=== PATIENT | male | born 1970 | race Caucasian/White ===

== ENCOUNTER 2016-11-24 06:21 | Emergency (ER) | payer BC ==
[2016-11-24] MEDS ORDERED: Meclizine 25 MG Tab PO ONE (06:34)
[2016-11-24] MEDS ORDERED: Sodium Chloride 0.9% 1,000 ML IV ONE (06:38)
--- NOTE | 2016-11-24 06:47 | EDM.PDOC ---
<Maldonado Zapata - Last Filed: 11/24/16 17:25> ED HPI GENERAL MEDICAL PROBLEM - General Chief Complaint: General Stated Complaint: DIZZINESS Time Seen by Provider: 11/24/16 06:30 - Related Data Allergies Allergy/AdvReac Type Severity Reaction Status Date / Time Penicillins Allergy Cannot Verified 11/24/16 06:27 Remember Sulfa (Sulfonamide Allergy Itching Verified 11/24/16 06:27 Antibiotics) Home Meds: Home Meds Fluticasone Propionate [Flonase] 1 puff NASRT DAILY 11/24/16 [History] Course - Vital Signs Text/Narrative:: ASA 324 mg po MRI as ordered by Dr. Bhatt was interpreted by radiology as showing no significant abnormalities. carotid US scheduled. Last Recorded V/S: Last Vital Signs Temp 36.8 C 11/24/16 06:30 Pulse 84 11/24/16 06:30 Resp 16 11/24/16 06:30 BP 134/92 H 11/24/16 06:59 Pulse Ox 100 11/24/16 06:30 - Orders/Labs/Meds Labs: Laboratory Tests 11/24/16 11/24/16 11/24/16 Range/Units 06:45 06:45 06:45 WBC 7.3 (4.5-12.0) X10-3/uL RBC 5.23 (4.30-5.75) x10(6)uL Hgb 14.8 (11.5-15.5) g/dL Hct 44.4 (30.0-51.3) % MCV 84.9 (80-96) fL MCH 28.3 (27.7-33.6) pg MCHC 33.3 (32.2-35.4) g/dL RDW 12.8 (11.5-15.5) % Plt Count 182 (125-369) X10(3)uL MPV 9.3 (7.4-10.4) fL Neut % (Auto) 54.2 (46-82) % Lymph % (Auto) 35.2 (13-37) % [place] % (Auto) 6.6 (4-12) % Eos % (Auto) 3 (1.0-5.0) % Baso % (Auto) 1 (0-2) % Neut # (Auto) 3.9 (1.6-8.3) # Lymph # (Auto) 2.6 (0.6-5.0) # [place] # (Auto) 0.5 (0.0-1.3) # Eos # (Auto) 0.2 (0.0-0.8) # Baso # (Auto) 0.1 (0.0-0.2) # PT 9.9 (8.7-11.1) INR 0.98 (0.89-1.13) Sodium 137 (135-145) mmol/L Potassium 3.9 (3.5-5.3) mmol/L Chloride 103 (100-110) mmol/L Carbon Dioxide 24 (23-29) mmol/L BUN 13 (5-20) mg/dL Creatinine 0.9 (0.6-1.3) mg/dL Est Cr Clr Drug Dosing 111.56 mL/min Estimated GFR (MDRD) > 60 (>60) BUN/Creatinine Ratio 14.4 (9-20) Glucose 173 H (80-116) mg/dL Calcium 9.1 (8.6-10.2) mg/dL Creatine Kinase 60 (60-160) IU/L Troponin I (0.02-0.06) NG/ML B-Natriuretic Peptide (0-100) pg/mL Triglycerides (10-150) mg/dL Cholesterol (5-200) mg/dL LDL Cholesterol Direct (66-130) mg/dL HDL Cholesterol (40-70) mg/dL Cholesterol/HDL Ratio (0-5) Urine Color (YELLOW) Urine Appearance (CLEAR) Urine pH (5.0-6.5) Ur Specific [place] (1.010-1.025) Urine Protein (NEGATIVE) mg/dL Urine Glucose (UA) (NEGATIVE) mg/dL Urine Ketones (NEGATIVE) mg/dL Urine Occult Blood (NEGATIVE) Urine Nitrite (NEGATIVE) Urine Bilirubin (NEGATIVE) Urine Urobilinogen (NEGATIVE) mg/dL Ur Leukocyte Esterase (NEGATIVE) Urine WBC (0) Ur Squamous Epith Cells (NS,R,O) Urine Bacteria (NS) 11/24/16 11/24/16 11/24/16 Range/Units 06:45 06:45 06:45 WBC (4.5-12.0) X10-3/uL RBC (4.30-5.75) x10(6)uL Hgb (11.5-15.5) g/dL Hct (30.0-51.3) % MCV (80-96) fL MCH (27.7-33.6) pg MCHC (32.2-35.4) g/dL RDW (11.5-15.5) % Plt Count (125-369) X10(3)uL MPV (7.4-10.4) fL Neut % (Auto) (46-82) % Lymph % (Auto) (13-37) % [place] % (Auto) (4-12) % Eos % (Auto) (1.0-5.0) % Baso % (Auto) (0-2) % Neut # (Auto) (1.6-8.3) # Lymph # (Auto) (0.6-5.0) # [place] # (Auto) (0.0-1.3) # Eos # (Auto) (0.0-0.8) # Baso # (Auto) (0.0-0.2) # PT (8.7-11.1) INR (0.89-1.13) Sodium (135-145) mmol/L Potassium (3.5-5.3) mmol/L Chloride (100-110) mmol/L Carbon Dioxide (23-29) mmol/L BUN (5-20) mg/dL Creatinine (0.6-1.3) mg/dL Est Cr Clr Drug Dosing mL/min Estimated GFR (MDRD) (>60) BUN/Creatinine Ratio (9-20) Glucose (80-116) mg/dL Calcium (8.6-10.2) mg/dL Creatine Kinase (60-160) IU/L Troponin I < 0.01 L (0.02-0.06) NG/ML B-Natriuretic Peptide < 5 (0-100) pg/mL Triglycerides 603 H (10-150) mg/dL Cholesterol 232 H (5-200) mg/dL LDL Cholesterol Direct 66 (66-130) mg/dL HDL Cholesterol 28 L (40-70) mg/dL Cholesterol/HDL Ratio 8.3 H (0-5) Urine Color (YELLOW) Urine Appearance (CLEAR) Urine pH (5.0-6.5) Ur Specific [place] (1.010-1.025) Urine Protein (NEGATIVE) mg/dL Urine Glucose (UA) (NEGATIVE) mg/dL Urine Ketones (NEGATIVE) mg/dL Urine Occult Blood (NEGATIVE) Urine Nitrite (NEGATIVE) Urine Bilirubin (NEGATIVE) Urine Urobilinogen (NEGATIVE) mg/dL Ur Leukocyte Esterase (NEGATIVE) Urine WBC (0) Ur Squamous Epith Cells (NS,R,O) Urine Bacteria (NS) 11/24/16 Range/Units 09:38 WBC (4.5-12.0) X10-3/uL RBC (4.30-5.75) x10(6)uL Hgb (11.5-15.5) g/dL Hct (30.0-51.3) % MCV (80-96) fL MCH (27.7-33.6) pg MCHC (32.2-35.4) g/dL RDW (11.5-15.5) % Plt Count (125-369) X10(3)uL MPV (7.4-10.4) fL Neut % (Auto) (46-82) % Lymph % (Auto) (13-37) % [place] % (Auto) (4-12) % Eos % (Auto) (1.0-5.0) % Baso % (Auto) (0-2) % Neut # (Auto) (1.6-8.3) # Lymph # (Auto) (0.6-5.0) # [place] # (Auto) (0.0-1.3) # Eos # (Auto) (0.0-0.8) # Baso # (Auto) (0.0-0.2) # PT (8.7-11.1) INR (0.89-1.13) Sodium (135-145) mmol/L Potassium (3.5-5.3) mmol/L Chloride (100-110) mmol/L Carbon Dioxide (23-29) mmol/L BUN (5-20) mg/dL Creatinine (0.6-1.3) mg/dL Est Cr Clr Drug Dosing mL/min Estimated GFR (MDRD) (>60) BUN/Creatinine Ratio (9-20) Glucose (80-116) mg/dL Calcium (8.6-10.2) mg/dL Creatine Kinase (60-160) IU/L Troponin I (0.02-0.06) NG/ML B-Natriuretic Peptide (0-100) pg/mL Triglycerides (10-150) mg/dL Cholesterol (5-200) mg/dL LDL Cholesterol Direct (66-130) mg/dL HDL Cholesterol (40-70) mg/dL Cholesterol/HDL Ratio (0-5) Urine Color Yellow (YELLOW) Urine Appearance Clear (CLEAR) Urine pH 7.0 H (5.0-6.5) Ur Specific [place] 1.015 (1.010-1.025) Urine Protein Negative (NEGATIVE) mg/dL Urine Glucose (UA) Normal (NEGATIVE) mg/dL Urine Ketones Negative (NEGATIVE) mg/dL Urine Occult Blood Negative (NEGATIVE) Urine Nitrite Negative (NEGATIVE) Urine Bilirubin Negative (NEGATIVE) Urine Urobilinogen Normal (NEGATIVE) mg/dL Ur Leukocyte Esterase Negative (NEGATIVE) Urine WBC 0-5 (0) Ur Squamous Epith Cells Occasional (NS,R,O) Urine Bacteria Few H (NS) Meds: Medications Discontinued Medications Generic Name Dose Route Start Last Admin Trade Name Zenaida PRN Reason Stop Dose Admin Aspirin 324 mg 11/24/16 07:51 11/24/16 08:31 Aspirin PO 11/24/16 07:52 324 mg ONETIME ONE Administration Gadobutrol 10 ml 11/24/16 07:45 11/24/16 08:26 Gadavist IV 10 ml . 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 See your doctor to discuss management of your cholesterol. Return to the ER if worse. Off work today. Return as outpatient for carotid ultrasound( December 03 at 11 am). <Steven Bhatt M - Last Filed: 11/25/16 08:11> ED HPI GENERAL MEDICAL PROBLEM - General Source of Information: Reports: Patient, Family - History of Present Illness INITIAL COMMENTS - FREE TEXT/NARRATIVE: 46 y.o.w.m in prev healthy condition, came to the ed with his SO due to acute onset of dizziness as he got up this am. Pt was not able to ambulate. No C/P, N/ V/D. Pt was drinking 48 hours ago, last food intake 5 pm last night. Cardiac risc factors: Male, Family? Cholesterol?. Pt denies any pain. No H/O CVA. Pt appeared pale and weak as he arrived here in the ed, no trauma. No H/O vertigo. Quit smoking 7 months ago. Onset: Today Onset Date: 11/24/16 Onset Time: 03:00 Duration: Hour(s): Location: Reports: Head Quality: Reports: Other (dizzy) Severity: Moderate Improves with: Reports: Immobilization Worsens with: Reports: Movement Context: Reports: Other (get up fro a supine position) Associated Symptoms: Reports: Weakness ED ROS GENERAL - Review of Systems Review Of Systems: See Below Constitutional: Reports: Weakness, Fatigue, Other (dizzy) HEENT: Reports: Other (dry mouth) Respiratory: Reports: No Symptoms Cardiovascular: Reports: No Symptoms Endocrine: Reports: No Symptoms GI/Abdominal: Reports: No Symptoms : Reports: No Symptoms Musculoskeletal: Reports: No Symptoms Skin: Reports: Pallor Neurological: Reports: Dizziness, Difficulty Walking Psychiatric: Reports: No Symptoms Hematologic/Lymphatic: Reports: No Symptoms Immunologic: Reports: No Symptoms ED EXAM, GENERAL - Physical Exam Exam: See Below Exam Limited By: Other (dizzy) General Appearance: Alert, WD/WN, Mild Distress, Obese Eye Exam: Left Eye: Nystagmus Ears: Normal External Exam Ear Exam: Bilateral Ear: Auricle Normal Nose: Normal Inspection, Normal Mucosa Throat/Mouth: Normal Lips, Other (dry mucosal membrane) Head: Atraumatic, Normocephalic Neck: Normal Inspection, Supple, Non-Tender, Full Range of Motion Respiratory/Chest: No Respiratory Distress, Lungs Clear, Normal Breath Sounds, No Accessory Muscle Use, Chest Non-Tender Cardiovascular: Normal Peripheral Pulses, Regular Rate, Rhythm, No Edema Peripheral Pulses: 2+: Femoral (L), Femoral (R) GI/Abdominal: Normal Bowel Sounds, Soft, Non-Tender, No Organomegaly (Male) Exam: Deferred Rectal (Males) Exam: Deferred Back Exam: Normal Inspection, Full Range of Motion Extremities: Normal Inspection, Normal Range of Motion, Non-Tender, No Pedal Edema Neurological: Alert, Oriented, CN II-XII Intact, Normal Cognition, Abnormal Gait Psychiatric: Normal Affect, Normal Mood Skin Exam: Warm, Dry, Intact, Normal Color, No Rash Lymphatic: No Adenopathy EKG INTERPRETATION EKG Date: 11/24/16 Time: 06:35 Rhythm: NSR Rate (Beats/Min): 82 [place]: Normal P-Wave: Present QRS: Normal ST-T: Normal QT: Normal Comparison: NA - No Prior EKG Course - Vital Signs Text/Narrative:: 46 y.o.w.m in prev healthy condition, came to the ed with his SO due to acute onset of dizziness as he got up this am. Pt was not able to ambulate. No C/P, N/ V/D. Pt was drinking 48 hours ago, last food intake 5 pm last night. Cardiac risc factors: Male, Family? Cholesterol?. Pt denies any pain. No H/O CVA. Pt appeared pale and weak as he arrived here in the ed, no trauma. No H/O vertigo. PE: Nystagmus at the gaze to the left , FF and FN test were nl. Labs: Pending Imaging: Pending Impression: BPPV vs CVA vs TIA Pt was signed out to Dr. Carvalho at 7 am due to shift changes, pending lab and imaging results. - Orders/Labs/Meds Labs: Laboratory Tests 11/24/16 11/24/16 11/24/16 Range/Units 06:45 06:45 06:45 WBC 7.3 (4.5-12.0) X10-3/uL RBC 5.23 (4.30-5.75) x10(6)uL Hgb 14.8 (11.5-15.5) g/dL Hct 44.4 (30.0-51.3) % MCV 84.9 (80-96) fL MCH 28.3 (27.7-33.6) pg MCHC 33.3 (32.2-35.4) g/dL RDW 12.8 (11.5-15.5) % Plt Count 182 (125-369) X10(3)uL MPV 9.3 (7.4-10.4) fL Neut % (Auto) 54.2 (46-82) % Lymph % (Auto) 35.2 (13-37) % [place] % (Auto) 6.6 (4-12) % Eos % (Auto) 3 (1.0-5.0) % Baso % (Auto) 1 (0-2) % Neut # (Auto) 3.9 (1.6-8.3) # Lymph # (Auto) 2.6 (0.6-5.0) # [place] # (Auto) 0.5 (0.0-1.3) # Eos # (Auto) 0.2 (0.0-0.8) # Baso # (Auto) 0.1 (0.0-0.2) # PT 9.9 (8.7-11.1) INR 0.98 (0.89-1.13) Sodium 137 (135-145) mmol/L Potassium 3.9 (3.5-5.3) mmol/L Chloride 103 (100-110) mmol/L Carbon Dioxide 24 (23-29) mmol/L BUN 13 (5-20) mg/dL Creatinine 0.9 (0.6-1.3) mg/dL Est Cr Clr Drug Dosing 111.56 mL/min Estimated GFR (MDRD) > 60 (>60) BUN/Creatinine Ratio 14.4 (9-20) Glucose 173 H (80-116) mg/dL Calcium 9.1 (8.6-10.2) mg/dL Creatine Kinase 60 (60-160) IU/L Troponin I (0.02-0.06) NG/ML B-Natriuretic Peptide (0-100) pg/mL Triglycerides (10-150) mg/dL Cholesterol (5-200) mg/dL LDL Cholesterol Direct (66-130) mg/dL HDL Cholesterol (40-70) mg/dL Cholesterol/HDL Ratio (0-5) Urine Color (YELLOW) Urine Appearance (CLEAR) Urine pH (5.0-6.5) Ur Specific [place] (1.010-1.025) Urine Protein (NEGATIVE) mg/dL Urine Glucose (UA) (NEGATIVE) mg/dL Urine Ketones (NEGATIVE) mg/dL Urine Occult Blood (NEGATIVE) Urine Nitrite (NEGATIVE) Urine Bilirubin (NEGATIVE) Urine Urobilinogen (NEGATIVE) mg/dL Ur Leukocyte Esterase (NEGATIVE) Urine WBC (0) Ur Squamous Epith Cells (NS,R,O) Urine Bacteria (NS) 11/24/16 11/24/16 11/24/16 Range/Units 06:45 06:45 06:45 WBC (4.5-12.0) X10-3/uL RBC (4.30-5.75) x10(6)uL Hgb (11.5-15.5) g/dL Hct (30.0-51.3) % MCV (80-96) fL MCH (27.7-33.6) pg MCHC (32.2-35.4) g/dL RDW (11.5-15.5) % Plt Count (125-369) X10(3)uL MPV (7.4-10.4) fL Neut % (Auto) (46-82) % Lymph % (Auto) (13-37) % [place] % (Auto) (4-12) % Eos % (Auto) (1.0-5.0) % Baso % (Auto) (0-2) % Neut # (Auto) (1.6-8.3) # Lymph # (Auto) (0.6-5.0) # [place] # (Auto) (0.0-1.3) # Eos # (Auto) (0.0-0.8) # Baso # (Auto) (0.0-0.2) # PT (8.7-11.1) INR (0.89-1.13) Sodium (135-145) mmol/L Potassium (3.5-5.3) mmol/L Chloride (100-110) mmol/L Carbon Dioxide (23-29) mmol/L BUN (5-20) mg/dL Creatinine (0.6-1.3) mg/dL Est Cr Clr Drug Dosing mL/min Estimated GFR (MDRD) (>60) BUN/Creatinine Ratio (9-20) Glucose (80-116) mg/dL Calcium (8.6-10.2) mg/dL Creatine Kinase (60-160) IU/L Troponin I < 0.01 L (0.02-0.06) NG/ML B-Natriuretic Peptide < 5 (0-100) pg/mL Triglycerides 603 H (10-150) mg/dL Cholesterol 232 H (5-200) mg/dL LDL Cholesterol Direct 66 (66-130) mg/dL HDL Cholesterol 28 L (40-70) mg/dL Cholesterol/HDL Ratio 8.3 H (0-5) Urine Color (YELLOW) Urine Appearance (CLEAR) Urine pH (5.0-6.5) Ur Specific [place] (1.010-1.025) Urine Protein (NEGATIVE) mg/dL Urine Glucose (UA) (NEGATIVE) mg/dL Urine Ketones (NEGATIVE) mg/dL Urine Occult Blood (NEGATIVE) Urine Nitrite (NEGATIVE) Urine Bilirubin (NEGATIVE) Urine Urobilinogen (NEGATIVE) mg/dL Ur Leukocyte Esterase (NEGATIVE) Urine WBC (0) Ur Squamous Epith Cells (NS,R,O) Urine Bacteria (NS) 11/24/ Range/Units 09:38 WBC (4.5-12.0) X10-3/uL RBC (4.30-5.75) x10(6)uL Hgb (11.5-15.5) g/dL Hct (30.0-51.3) % MCV (80-96) fL MCH (27.7-33.6) pg MCHC (32.2-35.4) g/dL RDW (11.5-15.5) % Plt Count (125-369) X10(3)uL MPV (7.4-10.4) fL Neut % (Auto) (46-82) % Lymph % (Auto) (13-37) % [place] % (Auto) (4-12) % Eos % (Auto) (1.0-5.0) % Baso % (Auto) (0-2) % Neut # (Auto) (1.6-8.3) # Lymph # (Auto) (0.6-5.0) # [place] # (Auto) (0.0-1.3) # Eos # (Auto) (0.0-0.8) # Baso # (Auto) (0.0-0.2) # PT (8.7-11.1) INR (0.89-1.13) Sodium (135-145) mmol/L Potassium (3.5-5.3) mmol/L Chloride (100-110) mmol/L Carbon Dioxide (23-29) mmol/L BUN (5-20) mg/dL Creatinine (0.6-1.3) mg/dL Est Cr Clr Drug Dosing mL/min Estimated GFR (MDRD) (>60) BUN/Creatinine Ratio (9-20) Glucose (80-116) mg/dL Calcium (8.6-10.2) mg/dL Creatine Kinase (60-160) IU/L Troponin I (0.02-0.06) NG/ML B-Natriuretic Peptide (0-100) pg/mL Triglycerides (10-150) mg/dL Cholesterol (5-200) mg/dL LDL Cholesterol Direct (66-130) mg/dL HDL Cholesterol (40-70) mg/dL Cholesterol/HDL Ratio (0-5) Urine Color Yellow (YELLOW) Urine Appearance Clear (CLEAR) Urine pH 7.0 H (5.0-6.5) Ur Specific [place] 1.015 (1.010-1.025) Urine Protein Negative (NEGATIVE) mg/dL Urine Glucose (UA) Normal (NEGATIVE) mg/dL Urine Ketones Negative (NEGATIVE) mg/dL Urine Occult Blood Negative (NEGATIVE) Urine Nitrite Negative (NEGATIVE) Urine Bilirubin Negative (NEGATIVE) Urine Urobilinogen Normal (NEGATIVE) mg/dL Ur Leukocyte Esterase Negative (NEGATIVE) Urine WBC 0-5 (0) Ur Squamous Epith Cells Occasional (NS,R,O) Urine Bacteria Few H (NS)
[2016-11-24 07:00] VITALS: BP 134/92
[2016-11-24] MEDS ORDERED: Gadobutrol 10 mMOL/10 ML SDV IV SCH (07:45)
[2016-11-24] MEDS ORDERED: Aspirin 81 MG Tab.Chew PO ONE (07:51)
== END 2016-11-24 13:50 | disposition home or self-care (01) ==
LOC: FB.ED 06:21
DX: G45.0 Vertebro-basilar artery syndrome (principal); E78.00 Pure hypercholesterolemia, unspecified; Z88.0 Allergy status to penicillin; Z88.2 Allergy status to sulfonamides
CPT/HCPCS: 36415; 70544; 70553; 80048; 80061; 81001; 82550; 83880; 84484; 85025; 85610; 93005; 96360; 96361; 99285; A9270; A9585; J7040

== ENCOUNTER 2019-04-14 21:09 | Emergency (ER) | payer BC ==
--- NOTE | 2019-04-14 21:52 | EDM.PDOC ---
ED HPI GENERAL MEDICAL PROBLEM - General Chief Complaint: Genitourinary Problem Stated Complaint: BLEEDING FROM TESTICLE Time Seen by Provider: 04/14/19 21:25 Source of Information: Reports: Patient History Limitations: Reports: No Limitations - History of Present Illness INITIAL COMMENTS - FREE TEXT/NARRATIVE: pt noticed bleeding from scrotal sac this evening, denies injury or trauma or any associated pain , pt denies being anticoagulated or having hx of bleeding disorder. tasticle Pain Score (Numeric/FACES): 2 - Related Data Allergies Allergy/AdvReac Type Severity Reaction Status Date / Time Penicillins Allergy Cannot Verified 11/24/16 06:27 Remember Sulfa (Sulfonamide Allergy Itching Verified 11/24/16 06:27 Antibiotics) Home Meds: Home Meds Aspirin [Ecotrin EC] 325 mg PO DAILY 04/14/19 [History] Losartan/Hydrochlorothiazide [Losartan-HCTZ 50-12.5 MG] 1 each PO DAILY [History] Rosuvastatin Calcium 10 mg PO DAILY 04/14/19 [History] metFORMIN HCl [Metformin HCl] 2,000 mg PO BID 04/14/19 [History] Past Medical History Cardiovascular History: Reports: Hypertension Endocrine/Metabolic History: Reports: Diabetes, Type II Social & Family History - Tobacco Use Smoking Status *Q: Former Smoker Used Tobacco, but Quit: Yes Month/Year Tobacco Last Used: 2015 - Caffeine Use Caffeine Use: Reports: Soda ED ROS GENERAL - Review of Systems Review Of Systems: See Below Constitutional: Reports: No Symptoms HEENT: Reports: No Symptoms Respiratory: Reports: No Symptoms Cardiovascular: Reports: No Symptoms GI/Abdominal: Reports: No Symptoms : Reports: No Symptoms Musculoskeletal: Reports: No Symptoms Skin: Reports: No Symptoms ED EXAM, GENERAL - Physical Exam Exam: See Below Exam Limited By: No Limitations General Appearance: Alert, No Apparent Distress Respiratory/Chest: No Respiratory Distress, Lungs Clear, Normal Breath Sounds Cardiovascular: Normal Peripheral Pulses, Regular Rate, Rhythm GI/Abdominal: Normal Bowel Sounds, Soft, Non-Tender (Male) Exam: Other (there is a tiny puncture wound at right side of sctotal sac, with minimal oozing of blood n signs of infection, or swlling or pain. ) Course - Vital Signs Text/Narrative:: this seems secondary to a superficial vessel bleeding, Dermabond was applied , no recurrent bleeding was noted, supportive mng was advised and f/u PRN. Last Recorded V/S: Last Vital Signs Temp 36.6 C 04/14/19 21:09 Pulse 108 H 04/14/19 21:09 Resp 18 04/14/19 21:09 BP 152/104 H 04/14/19 21:09 Pulse Ox 98 04/14/19 21:09 Departure - Departure Time of Disposition: 21:52 Disposition: Home, Self-Care 01 Clinical Impression: Skin hemorrhage - Discharge Information Referrals: PCP,None [Primary Care Provider] - Sepsis Event Note - Evaluation Sepsis Screening Result: No Definite Risk - Focused Exam Vital Signs: Vital Signs Temp Pulse Resp BP Pulse Ox 04/14/19 21:09 36.6 C 108 H 18 152/104 H 98 Date Exam was Performed: 04/14/19 Time Exam was Performed: 21:46
[2019-04-14 22:46] VITALS: BP 125/85; PULSE 99
== END 2019-04-14 22:15 | disposition home or self-care (01) ==
LOC: FB.ED 21:09
DX: N50.89 Other specified disorders of the male genital organs (principal)